=== PATIENT | male | born 1980 | race Caucasian/White ===

== ENCOUNTER 2023-12-12 12:23 | Emergency (ER) | payer BC ==
[~2023-12-12] VITALS: Ht 175.3 cm; Wt 82.0 kg
[2023-12-12 12:27] VITALS: O2SAT 97
[2023-12-12] MEDS ORDERED: MECLIZINE 25MG TABLET PO ONE (13:00)
[2023-12-12 13:33] LABS: BASOPHILS % 0.4 % (0.0-2.0); EOSINOPHILS % 0.5 % (0.0-5.0); HEMATOCRIT. 45.6 % (42.0-52.0); HEMOGLOBIN. 15.6 g/dL (14.0-18.0); LYMPHOCYTES % 11.4 % (20.0-50.0); MEAN CORPUSCULAR HEMOGLOBIN 29.6 pg (28.0-32.0); MEAN CORPUSCULAR HGB CONC 34.1 g/dL (31.0-37.0); MEAN CORPUSCULAR VOLUME 86.8 fL (80.0-94.0); MEAN PLATELET VOLUME 9.1 fl (7.4-10.4); MONOCYTES % 5.2 % (2.0-8.0); NEUTROPHILS % 82.5 % (40.0-76.0); PLATELET 199 x1000/uL (130-400); RED BLOOD CELL COUNT 5.26 mill/uL (4.7-6.1); RED CELL DISTRIBUTION WIDTH 13.9 % (11.6-14.6); WHITE BLOOD COUNT 10.2 x1000/uL (4.5-11.0)
[2023-12-12] MEDS: ONDANSETRON HCL 4MG/2ML INJ IV STA (13:34)
[2023-12-12] MEDS: SODIUM CHLORIDE 0.9% 1,000 ML IV ONE (13:34)
[2023-12-12 13:46] LABS: CHLORIDE 105 mEq/L (98-107); POTASSIUM 4.4 mEq/L (3.5-5.1); SODIUM 137 mEq/L (136-145)
[2023-12-12 13:47] LABS: CARBON DIOXIDE 25 mEq/L (21-32)
[2023-12-12 13:52] LABS: CREATININE 0.9 mg/dL (0.6-1.3); GLUCOSE 116 mg/dL (70-105); UREA NITROGEN BLOOD 15 mg/dL (9-23)
[2023-12-12] MEDS: MECLIZINE 12.5MG TABLET PO SCH (14:44)
[2023-12-12 15:08] LABS: ALANINE AMINOTRANSFERASE 18 IU/L (10-49); ALBUMIN 4.5 g/dL (3.2-4.8); ASPARTATE AMINOTRANSFERASE 16 IU/L (<34); BILIRUBIN TOTAL 0.4 mg/dL (0.1-1.0); PROTEIN TOTAL 7.1 g/dL (6.0-8.3)
[2023-12-12 15:34] LABS: BILIRUBIN DIRECT < 0.1 mg/dL (<=3.0)
[2023-12-12] MEDS ORDERED: MECL-299 MT (17:44)
[2023-12-12 18:36] VITALS: BP 125/84; PULSE 71; RESP 16; TEMP 98
== END 2023-12-12 19:02 | disposition home or self-care (01) ==
LOC: ER 13:09
DX: R11.2 Nausea with vomiting, unspecified (principal); G43.909 Migraine, unspecified, not intractable, without status migrainosus
CPT/HCPCS: 99285; 96374; 70450; 96361; 71045; 80076; 80048; 85025; 36415; J8597; J2405; J7030